=== PATIENT | female | born 1945 | race Two or more races ===

== ENCOUNTER 2025-01-23 15:48 | Emergency (ER) | payer BC, OTHER ==
[~2025-01-23] VITALS: Ht 160 cm; Wt 72.7 kg
--- NOTE | 2025-01-23 16:19 | ED.PDOC ---
Musculoskeletal HPI Comments This is a 79 year old female JAYSONA presenting to the ED with chief complaint of fall injury. Patient reports that she had been walking at [employer] when she turned too quickly, causing her right ankle to pop and she fell as a result, injuring her right foot. She fell forwards, monitor her hand and states she was able to catch herself. She denies any history of loss of consciousness, anticoagulation use. She was on a upset ambulate due to pain the fall. Patient relays that she now has pain to her right foot and ankle. Patient denies any numbness, weakness, tingling, chest pain, head injury, syncope, or any other injuries. Chief Complaint: Fall Injury Time Seen by MD: 16:17 Reviewed Notes: Nurses Notes, Medications, Allergies Allergies: Coded Allergies: NO KNOWN ALLERGIES (Unverified , 01/23/25) Information Source: Patient Mode of Arrival: EMS Location: Right Extremity Location: Ankle, Foot Timing: Hours Prehospital treatment: None Severity: Moderate Able to Move Extremity: Yes Bear Weight: No Pain: Moderate Mechanism: Twisting Circumstances: Fall Onset of Symptoms: After Trauma Symptoms: Pain DVT Risk Factors: NONE Last Tetanus: Unknown Past Medical History PAST MEDICAL HISTORY: Arthritis, High Lipids, HTN, Thyroid Past Medical History (Other): Osteoporosis Surgical History: Denies all surgeries REPAIR ORDER CLERK History: Denies all REPAIR ORDER CLERK Hx Family History Family History: Reviewed,noncontributory to illness Social History Smoker: Non-Smoker Alcohol: Denies ETOH Use Drugs: Denies Drug Use Lives In: Home Constitutional: denies: chills, diaphoresis, fatigue, fever, malaise, sweats, weakness, others EENTM: denies: blurred vision, double vision, ear bleeding, ear discharge, ear drainage, ear pain, ear ringing, eye pain, eye redness, hearing loss, mouth pain, mouth swelling, nasal discharge, nose bleeding, nose congestion, nose pain, photophobia, tearing, throat pain, throat swelling, voice changes, others Respiratory: denies: cough, hemoptysis, orthopnea, SOB at rest, shortness of breath, SOB with excertion, stridor, wheezing, others Cardiovascular: denies: chest pain, dizzy spells, diaphoresis, Dyspnea on exertion, edema, irregular heart beat, left arm pain, lightheadedness, palpitations, PND, syncope, others Gastrointestinal: denies: abdomen distended, abdominal pain, blood streaked bowels, constipated, diarrhea, dysphagia, difficulty swallowing, hematemesis, melena, nausea, poor appetite, poor fluid intake, rectal bleeding, rectal pain, vomiting, others Genitourinary: denies: abnormal vagina bleeding, burning, dyspareunia, dysuria, flank pain, frequency, hematuria, incontinence, pain, , vagina discharge, urgency, others Neurological: denies: dizziness, fainting, headache, left sided numbness, left sided weakness, numbness, paresthesia, pre-existing deficit, right sided n umbness, right sided weakness, seizure, speech problems, tingling, tremors, weakness, others Musculoskeletal: reports: others (Right foot and ankle pain); denies: back pain, gout, joint pain, joint swelling, muscle pain, muscle stiffness, neck pain Integumetry: denies: bruises, change in color, change in hair/nails, dryness, laceration, lesions, lumps, rash, wounds, others Allergic/Immunocompromised: denies: Difficulty Healing, Frequent Infections, Hives, Itching, others Hematologic/Lymphatic: denies: anemia, blood clots, easy bleeding, easy bruising, swollen glands, others Endocrine: denies: excessive hunger, excessive sweating, excessive thirst, excessive urination, flushing, intolerance to cold, intolerance to heat, unexplained weight gain, unexplained weight loss, others Psychiatric: denies: anxiety, bipolar disorder, depression, hopeless, panic disorder, schizophrenia, sleepless, suicidal, others All Other Systems: Reviewed and Negative Physical Exam General Appearance: No Apparent Distress, Normal HEENT: Normal ENT Inspection, Pharynx Normal, TMs Normal Neck: Full Range of Motion, Non-Tender, Normal, Normal Inspection Respiratory: Chest Non-Tender, Lungs Clear, No Accessory Muscle Use, No Respiratory Distress, Normal Breath Sounds Cardiovascular: No Edema, No JVD, No Murmur, No Gallop, Normal Peripheral Pulses, Regular Rate/Rhythm Breast Exam: Deferred Gastrointestinal: No Organomegaly, Non Tender, No Pulsatile Mass, Normal Bowel Sounds, Soft Genitalia: Deferred Pelvic: Deferred Rectal: Deferred Extremities: No calf tenderness, Normal capillary refill, Normal inspection, Normal range of motion, Non-tender, No pedal edema Musculoskeletal : Location: Right Extremity Location: Ankle, Foot Apperance: Tenderness (Right ankle and proximal foot tenderness to palpation.) Neurologic: Alert, supervisor compounding and finishing II-XII nml as Tested, No Motor Deficits, Normal Affect, Normal Mood, No Sensory Deficits Cerebellar Function: Normal Reflexes: Normal Skin: Dry, Normal Color, Warm Lymphatic: No Adenopathy Was a procedure done? Was a procedure done?: Yes Sedation Sedation?: No Informed consent obtained: Yes Other Procedure Procedure Right ankle short-leg splint Indication Right medial malleolar fracture Success Tolerated well Informed consent obtained: Yes Risks, benefits, and alternati: Yes Differential Diagnosis EXT Differential Diagnosis: Fracture, Sprain, Strain X-Ray, Labs, Meds, VS Vital Signs Date Time Temp Pulse Resp B/P (MAP) Pulse Ox O2 Delivery O2 Flow Rate FiO2 01/23/25 17:34 72 18 95 Room Air 01/23/25 17:34 98.1 72 18 173/64 (100) 95 98.1 01/23/25 15:51 98.2 75 18 193/64 98 98.2 [place] [address] Ph: [phone] DIAGNOSTIC IMAGING Diagnostic Imaging Report : [id number] Signed PATIENT: FAY SMITH DACCT: [id number] UNIT: [id number] : 1945 LOC: ER ROOM / BED: / AGE / SEX: 79 / F ADM STATUS: REG ER SERVICE [id number] ORDERING PHYSICIAN: MAX HERMAN MD PROCEDURE(s): RFOOT - R FOOT 3 VIEW XRAY REASON: fall ORDER NUMBER(s): [id number], ACCESSION NUMBER(s): [id number] Indication: fall Technique: XY R FOOT 3 VIEW XRAYXY Comparison: None FINDINGS/IMPRESSION: Fracture of the medial malleolus, better seen on the concurrent ankle radiograph. Inferior calcaneal spurring. Achilles enthesopathy. 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 Osteopenia. ATED BY: JENNIE RUTH MD DICTATED DATE/TIME: 01/23/25 170 SIGNED BY: JENNIE RUTH MD SIGNED DATE/TIME: 01/23/251708 CC: [facility] [id number] [place] [address] Ph: [phone] DIAGNOSTIC IMAGING Diagnostic Imaging Report : [id number] Signed PATIENT: FAY SMITH DACCT: [id number] UNIT: [id number] : 1945 LOC: ER ROOM / BED: / AGE / SEX: 79 / F ADM STATUS: REG ER SERVICE 160 ORDERING PHYSICIAN: MAX HERMAN MD PROCEDURE(s): RANK2 - R ANKLE 2 VIEW XRAY REASON: fall ORDER NUMBER(s): [id number], ACCESSION NUMBER(s): [id number] Indication: fall Technique: XY R ANKLE 2 VIEW XRAYXY Comparison: None FINDINGS/IMPRESSION: Fracture of the medial malleolus that is mildly displaced. There is medial malleolar soft tissue edema. Achilles enthesopathy. Inferior calcaneal spurring. ATED BY: JENNIE RUTH MD DICTATED DATE/TIME: 01/23/251707 SIGNED BY: JENNIE RUTH MD SIGNED DATE/TIME: 01/23/251707 CC: X-Ray, Labs, Meds, VS Comment Patient presenting with right ankle and foot pain and swelling after mechanical trip and fall. Vital signs stable and exam otherwise unremarkable besides tenderness to palpation to right ankle and foot. Considered blood work (including CBC/CMP/Mag) due to concern for electrolyte abnormality, but no blood work performed due to concern for trauma blood draws. Right ankle and foot x-ray to evaluate for fracture or dislocation Declining analgesia at this time Re-evaluation Social determinant surveillance affecting care: Social determinants of health that will affect the patient's care: Poor access to outpatient care/followup (provided outpatient resources) Images Reviewed?: Images reviewed and evaluated by me Time of 1ST Reevaluation: 17:13 Reevaluation 1ST: Unchanged Patient Education/Counseling: Diagnosis, Treatment Family Education/Counseling: No Family Present Departure 1 Departure Time of Disposition: 18:36 (On reassessment, patient found to have a medial malleolar fracture. Splint applied and patient given crutches. Discussed with patientOutpatient orthopedics follow-up. Given strict return precautions and PMD and Orthopedic follow-up.) Impression: Primary Impression: Closed right ankle fracture Additional Impressions: Right ankle pain Accidental fall Disposition: 01 HOME / SELF CARE / HOMELESS Condition: Stable Additional Instructions: You broke your ankle today. Follow up with orthopedics for further evaluation. Critical Care Note Critical Care Time?: No Stability Stability form required: No Heart Score Heart Score: Heart Score Response (Comments) Value History N/A 0 EKG N/A 0 Age N/A 0 Risk Factors N/A 0 Troponin N/A 0 Total 0 I personally scribed for MAX HERMAN MD ([email or web address]) on 01/23/25 at 16:19. Electronically submitted by Rich Howell ([email or web address]). I personally scribed for MAX HERMAN MD ([email or web address]) on 01/23/25 at 17:09. Electronically submitted by Rich Howell ([email or web address]). I personally scribed for MAX HERMAN MD ([email or web address]) on 01/23/25 at 17:09. Electronically submitted by Rich Howell ([email or web address]). MAX HERMAN MD Jan 23, 2025 16:19
--- NOTE | 2025-01-23 17:05 | DVH ---
Indication: fall Technique: XY R ANKLE 2 VIEW XRAYXY Comparison: None FINDINGS/IMPRESSION: Fracture of the medial malleolus that is mildly displaced. There is medial malleolar soft tissue edema. Achilles enthesopathy. Inferior calcaneal spurring.
--- NOTE | 2025-01-23 17:06 | DVH ---
Indication: fall Technique: XY R FOOT 3 VIEW XRAYXY Comparison: None FINDINGS/IMPRESSION: Fracture of the medial malleolus, better seen on the concurrent ankle radiograph. Inferior calcaneal spurring. Achilles enthesopathy. 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 Osteopenia.
[2025-01-23 17:34] VITALS: BP 173/64; PULSE 72; RESP 18; TEMP 98.1; O2SAT 95
== END 2025-01-23 19:17 | disposition home or self-care (01) ==
LOC: ER 15:48 → EDBD 15:48 → ER 19:15
DX: S82.51XA Displaced fracture of medial malleolus of right tibia, initial encounter for closed fracture (principal); I10 Essential (primary) hypertension; E78.5 Hyperlipidemia, unspecified; E03.9 Hypothyroidism, unspecified; M19.90 Unspecified osteoarthritis, unspecified site; W01.0XXA Fall on same level from slipping, tripping and stumbling without subsequent striking against object, initial encounter; Y93.89 Activity, other specified; Y92.89 Other specified places as the place of occurrence of the external cause; Y99.8 Other external cause status
CPT/HCPCS: 29515; 73600; 73630